=== PATIENT | male | born 1980 | race Caucasian/White ===

== ENCOUNTER 2017-11-16 15:00 | Emergency (ER) | payer OTHER ==
[2017-11-16] MEDS ORDERED: Bacitracin Oint 1 GM U/D Packet TOP ONE (15:27)
[2017-11-16] MEDS ORDERED: Ibuprofen 600 MG Tab PO ONE (15:28)
[2017-11-16] MEDS ORDERED: Lidocaine/EPINEPHrine/Tetracaine Soln 5 ML Each TOP ONE (15:28)
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
== END 2017-11-16 16:32 | disposition home or self-care (01) ==
LOC: JP.ED 15:00
DX: S01.81XA Laceration without foreign body of other part of head, initial encounter (principal); V19.9XXA Pedal cyclist (driver) (passenger) injured in unspecified traffic accident, initial encounter
CPT/HCPCS: 12013; 99283; A9270